=== PATIENT | male | born 1945 | race Caucasian/White ===

== ENCOUNTER 2021-08-21 13:06 | Outpatient (RCR) | payer OTHER ==
[2021-08-21 14:32] LABS: BASOPHILS % (AUTO) 0 % (0-10); EOSINOPHILS # (AUTO) 0.2 10^3/uL (0.0-0.3); EOSINOPHILS % (AUTO) 3 % (0-10); HEMATOCRIT 46 % (40-54); HEMOGLOBIN 14.7 g/dL (13.3-17.7); LYMPHOCYTES # (AUTO) 2.3 10^3/uL (1.0-4.0); LYMPHOCYTES % (AUTO) 35 % (12-44); MEAN CORPUSCULAR HEMOGLOBIN 28 pg (25-34); MEAN CORPUSCULAR HGB CONC 32 g/dL (32-36); MEAN CORPUSCULAR VOLUME 87 fL (80-99); MEAN PLATELET VOLUME 9.3 fL (9.0-12.2); MONOCYTES # (AUTO) 0.6 10^3/uL (0.0-1.0); MONOCYTES % (AUTO) 9 % (0-12); NEUTROPHILS # (AUTO) 3.5 10^3/uL (1.8-7.8); NEUTROPHILS % (AUTO) 53 % (42-75); PLATELET COUNT 162 10^3/uL (130-400); WHITE BLOOD COUNT 6.6 10^3/uL (4.3-11.0)
[2021-08-21 14:49] LABS: ALBUMIN 4.1 GM/DL (3.2-4.5); BILIRUBIN,TOTAL 0.6 MG/DL (0.1-1.0); CALCIUM 9.3 MG/DL (8.5-10.1); CREATININE SERUM 0.83 MG/DL (0.60-1.30); POTASSIUM 4.2 MMOL/L (3.6-5.0); TOTAL PROTEIN 7.5 GM/DL (6.4-8.2)
== END 2021-09-13 | disposition home or self-care (01) ==
LOC: ONC 13:06
PROVIDERS: ATTEND Internal Medicine Hematology & Oncology
DX: C64.9 Malignant neoplasm of unspecified kidney, except renal pelvis (principal)
CPT/HCPCS: 80053; 83615; 85025; 99213

== ENCOUNTER → 2021-09-09 | Outpatient (CLI) | payer OTHER ==
[~2021-09-09] MED LIST: BARIUM SUSPENSION 2.1% (VANILLA SILQ) 450 ML PO ONE; HOLD METFORMIN - RECEIVED CONTRAST 20 ML VIAL IV SCH; IOHEXOL 350 MG/ML 100 ML (OMNIPAQUE 350) VIAL IV ONE; NS 100 ML (IVPB) BAG IV ONE
[2021-09-09 09:54] LABS: ALBUMIN 4.1 GM/DL (3.2-4.5); BILIRUBIN,TOTAL 0.6 MG/DL (0.1-1.0); CALCIUM 9.1 MG/DL (8.5-10.1); CREATININE SERUM 0.92 MG/DL (0.60-1.30); POTASSIUM 4.3 MMOL/L (3.6-5.0); TOTAL PROTEIN 7.4 GM/DL (6.4-8.2)
--- NOTE | 2021-09-09 11:58 | Diagnostic Imaging Report ---
PROCEDURE: CT chest with contrast, CT abdomen with and without contrast. TECHNIQUE: Precontrast acquisitions were acquired through the abdomen. Multiple contiguous axial images were obtained through the chest and abdomen after administration of intravenous contrast. Auto Exposure Controls were utilized during the CT exam to meet ALARA standards for radiation dose reduction. INDICATION: Renal malignancy. I have no priors for comparison. FINDINGS: Postsurgical changes to the left lung present. Some scarring curvilinear in the left base. There is a densely calcified benign granuloma at the left apex posteriorly. No noncalcified or suspicious pulmonary nodule. No features suggestive of pneumonia or edema. There is no effusion or pneumothorax. There is a pathological right lower paratracheal mediastinal lymph node measuring 2.8 x 1.9 cm. Remaining mediastinal and hilar lymph node stations appeared normal. The chest wall unremarkable. No suspect bony lesion. Abdomen and pelvis: There is a left upper pole renal cyst showing no complexity. The right kidney surgically absent. The adrenal glands are present bilaterally and are normal. There is a tiny hyperenhancing focus at the dome of the right hepatic lobe posteromedially measuring 11 to 12 mm without a mass effect, somewhat ovoid in morphology and density is not significantly changed at the dynamic and delayed images. This is of uncertain etiology. Liver otherwise nonfocal. There is no bile duct dilatation. A few splenic granulomata noted incidentally. The pancreas normal. The gallbladder surgically absent. There is mild atherosclerotic fusiform unruptured infrarenal abdominal aortic aneurysmal dilatation 3.6 x 3.1 cm maximal. Common iliacs nonaneurysmal. There is no abdominal mesenteric or retroperitoneal lymphadenopathy. There is no ascites. There is no suspicious lytic or sclerotic bony lesion. There is lumbar spondylosis chronic. IMPRESSION: 1. Right paratracheal mediastinal lymph node and 1 cm hyperenhancing right hepatic dome nodules. These findings are indeterminate but given the history and the absence of priors, metastatic disease could not be confidently excluded. Either short-term followup or consideration for metabolic PET/CT suggested unless priors can confirm long-term stability. 2. Right nephrectomy with intact adrenals, benign cyst unobstructed. Left kidney otherwise normal. 3. Fusiform infrarenal abdominal aortic aneurysmal dilatation, annual sonographic followup to exclude progression of size recommended. 4. Postsurgical left lung with benign calcified pulmonary granulomata and no suspicious or acute pulmonary parenchymal pathology. Dictated by: Dictated on workstation # [id number]
== END ==
LOC: RAD 09:15
PROVIDERS: ATTEND Internal Medicine Hematology & Oncology
DX: C64.9 Malignant neoplasm of unspecified kidney, except renal pelvis (principal); N28.1 Cyst of kidney, acquired; I71.4 Abdominal aortic aneurysm, without rupture; K76.89 Other specified diseases of liver; J84.10 Pulmonary fibrosis, unspecified; Z90.5 Acquired absence of kidney
CPT/HCPCS: 36415; 71260; 74170; 80053

== ENCOUNTER → 2021-10-09 | Outpatient (CLI) | payer OTHER | LOC: CARD 09:00 | PROVIDERS: ATTEND Internal Medicine Cardiovascular Disease | DX: I51.7 Cardiomegaly (principal); I25.10 Atherosclerotic heart disease of native coronary artery without angina pectoris | CPT/HCPCS: 93306 ==

== ENCOUNTER → 2021-10-18 | Outpatient (CLI) | payer OTHER ==
[2021-10-18 11:25] LABS: BASOPHILS % (AUTO) 1 % (0-10); EOSINOPHILS # (AUTO) 0.2 10^3/uL (0.0-0.3); EOSINOPHILS % (AUTO) 4 % (0-10); HEMATOCRIT 43 % (40-54); HEMOGLOBIN 13.9 g/dL (13.3-17.7); LYMPHOCYTES # (AUTO) 1.7 10^3/uL (1.0-4.0); LYMPHOCYTES % (AUTO) 28 % (12-44); MEAN CORPUSCULAR HEMOGLOBIN 28 pg (25-34); MEAN CORPUSCULAR HGB CONC 32 g/dL (32-36); MEAN CORPUSCULAR VOLUME 87 fL (80-99); MEAN PLATELET VOLUME 9.3 fL (9.0-12.2); MONOCYTES # (AUTO) 0.5 10^3/uL (0.0-1.0); MONOCYTES % (AUTO) 8 % (0-12); NEUTROPHILS # (AUTO) 3.5 10^3/uL (1.8-7.8); NEUTROPHILS % (AUTO) 60 % (42-75); PLATELET COUNT 156 10^3/uL (130-400); WHITE BLOOD COUNT 5.9 10^3/uL (4.3-11.0)
[2021-10-18 11:39] LABS: PROTHROMBIN TIME PATIENT 13.6 SEC (12.2-14.7)
[2021-10-18 11:46] LABS: CALCIUM 9.1 MG/DL (8.5-10.1); CREATININE SERUM 0.98 MG/DL (0.60-1.30); POTASSIUM 5.1 MMOL/L (3.6-5.0)
== END ==
LOC: LAB 10:57
PROVIDERS: ATTEND Internal Medicine Cardiovascular Disease
DX: I25.10 Atherosclerotic heart disease of native coronary artery without angina pectoris (principal); C64.9 Malignant neoplasm of unspecified kidney, except renal pelvis; I71.4 Abdominal aortic aneurysm, without rupture; I10 Essential (primary) hypertension; I71.2 Thoracic aortic aneurysm, without rupture; E78.2 Mixed hyperlipidemia; J44.9 Chronic obstructive pulmonary disease, unspecified; E66.01 Morbid (severe) obesity due to excess calories
CPT/HCPCS: 36415; 80048; 85025; 85610

== ENCOUNTER 2021-10-24 09:00 | Day surgery (SDC) | payer OTHER ==
[~2021-10-24] VITALS: Ht 177.8 cm; Wt 131.1 kg
[2021-10-24 08:00] VITALS: BP 175/104
[2021-10-24 08:06] VITALS: BP 175/104
--- NOTE | 2021-10-24 08:51 | Pre-Op Note & Conscious Sedat ---
Pre-Operative Progress Note H&P Reviewed The H&P was reviewed, patient examined and no changes noted. Date H&P Reviewed: Oct 24, 2021 Time H&P Reviewed: 08:50 Pre-Op Diagnosis: Coronary artery disease with angina Conscious Sedation Pre-Proced ASA Score 2 For ASA 3 and 4: Consider anesthesia and medical clearance. Also, for patients with a history of failed moderate sedation consider anesthesia. Airway Lungs Heart ASA score ASA 1: a normal healthy patient ASA 2: a patient with a mild systemic disease (mid diabetes, controlled hypertension, obesity ASA 3: a patient with a severe systemic disease that limits activity (angina, COPD, prior Myocardial infarction) ASA 4: a patient with an incapacitating disease that is a constant threat to life (CHF, renal failure) ASA 5: a moribund patient not expected to survive 24 hrs. (ruptured aneurysm) ASA 6: a declared brain- patient whose organs are being harvested. For emergent operations, add the letter E after the classification Mallampati Classification Grade 3 Sedation Plan Analgesia, Amnesia, Plan communicated to team members, Discussed options with patient/fam, Discussed risks with patient/fam The patient is an appropriate candidate to undergo the planned procedure, sedation, and anesthesia. The patient immediately re-assessed prior to indication. TONJA SURESH JR, MD Oct 24, 2021 08:51
[~2021-10-24 09:00] MED LIST changes: +ACET-2650 PO; +ALBU2.5V4 INH; +ASPI-1238 PO; +ASPIRIN 81 MG CHEW (CHILDREN'S ASA) ONE; +ASPIRIN 81 MG CHEW (CHILDREN'S ASA) PO ONE; +ATOR40TA70 PO; -BARIUM SUSPENSION 2.1% (VANILLA SILQ) 450 ML PO ONE; +CALC-250 PO; +CATHETER FLUSH 10 ML SYR IV PRN; +CYAN-41 PO; +FLUT1BLS12 IH; +FLUT9.9S NS; +FURO-125 PO; +GABA300C PO; +HEParin (CATH LAB) 2,000 ML IV ONE; +HEParin 1000 UNIT/ML (10ML VIAL) FOR BOLUS ONE; -HOLD METFORMIN - RECEIVED CONTRAST 20 ML VIAL IV SCH; +HYDR-700 PO; -IOHEXOL 350 MG/ML 100 ML (OMNIPAQUE 350) VIAL IV ONE; +LIDOCAINE 1% INJ 20 ML VIAL ONE; +LISI40TA9 PO; +METO100T12 PO; +MIDAZOLAM 5 MG/5 ML (VERSED) VIAL ONE; +MULT-1136 PO; +NITRO DRIP 25000 MCG/D5W 250 ML IV ONE; -NS 100 ML (IVPB) BAG IV ONE; +NS IV 1000 ML 1,000 ML IV ONE; +NS IV 1000 ML 1,000 ML ONE; +RT-ALBUINH IH; +VERAPAMIL 5 MG/2 ML (CALAN) VIAL IV ONE; +fentaNYL INJ 100 MCG/2 ML AMP ONE
[2021-10-24] MEDS ORDERED: ISOS60TA63 PO (09:07)
[2021-10-24] MEDS ORDERED: NITR0.4T39 SL (09:07)
[2021-10-24] MEDS ORDERED: PATIENT MAY USE OWN MEDS, ALL PO SCH (11:15)
[2021-10-24] MEDS ORDERED: NS IV 1000 ML 1,000 ML IV SCH (11:15)
--- NOTE | 2021-10-24 11:21 | Cardiac Cath Report ---
CARDIAC CATHETERIZATION DATE OF PROCEDURE: 10/24/2021 INDICATION: Coronary artery disease with angina pectoris. HISTORY: The patient is a 76 year old male with a known history of coronary artery disease with previous stents. He has been having exertional dyspnea and as he previously abnormal stress test. He is on 2 antianginal medications but is still getting dyspnea on exertion which could be consistent with angina. As such, he is now referred for further evaluation with a cardiac catheterization. PROCEDURES PERFORMED: 1. Left heart catheterization with hemodynamic measurements. 2. Diagnostic [place] coronary angiography. PROCEDURE DESCRIPTION: After informed consent and in the fasting state, left heart catheterization was performed through the right radial artery utilizing a 6 [place]ian system by percutaneous approach. Standard 5 [place] Marion catheters were utilized for the diagnostic portion of the procedure. All catheters were exchanged over a guidewire. Following the procedure, a vascular band was applied to the radial artery access site and the sheath was removed with good hemostasis. RESULTS: HEMODYNAMICS: The aortic pressure was 120/69 mmHg. The left ventricular pressure was 147/0 mmHg with a left ventricular end-diastolic pressure of 15 mmHg. There was no significant pressure gradient upon pullback across aortic valve. CORONARY ANGIOGRAPHY: The coronary arteries were moderately calcified. Left main coronary artery: Free of significant disease. Left anterior descending coronary artery: There was a 50% stenosis in the mid segment right at the takeoff of a septal footwear production machine operator with DEVIKA-3 flow. Left circumflex coronary artery: There was a long 50% stenosis in the proximal segment just proximal to the takeoff of a very large first obtuse marginal branch which was free of significant disease. Right coronary artery: Dominant and somewhat ectatic. There was a stent in the mid segment at the crux of the vessel which was widely patent. There was a 50% stenosis just distal to the stent. IMPRESSION: 1. Mildly elevated left ventricular end-diastolic pressure. 2. Moderate calcific three-vessel coronary artery disease with a patent stent in the mid right coronary artery. 3. The patient is known to have normal left ventricular systolic function with an estimated ejection fraction of 55-60% by echocardiogram obtained on 10/09/2021. Certain portions of this document may have been dictated utilizing voice recognition technology. Inherent to this technology, typographical and grammatical errors may exist. As much as I am diligent to identify and correct these mistakes, some errors may remain in the document. TONJA SURESH JR, MD Oct 24, 2021 11:21
== END 2021-10-24 15:45 | disposition home or self-care (01) ==
LOC: CATH 09:00 → CSD 11:39 → CATH 15:45
PROVIDERS: ATTEND Internal Medicine Cardiovascular Disease
DX: I25.119 Atherosclerotic heart disease of native coronary artery with unspecified angina pectoris (principal); I10 Essential (primary) hypertension; E66.01 Morbid (severe) obesity due to excess calories; Z79.82 Long term (current) use of aspirin; Z87.891 Personal history of nicotine dependence; Z68.41 Body mass index [BMI] 40.0-44.9, adult; Z90.5 Acquired absence of kidney; Z85.528 Personal history of other malignant neoplasm of kidney; Z79.899 Other long term (current) drug therapy; Z82.49 Family history of ischemic heart disease and other diseases of the circulatory system; Z83.3 Family history of diabetes mellitus
CPT/HCPCS: 87081; 93458

== ENCOUNTER → 2022-03-21 | Outpatient (CLI) | payer OTHER ==
[~2022-03-21] MED LIST changes: -ASPIRIN 81 MG CHEW (CHILDREN'S ASA) ONE; -ASPIRIN 81 MG CHEW (CHILDREN'S ASA) PO ONE; -CATHETER FLUSH 10 ML SYR IV PRN; -HEParin (CATH LAB) 2,000 ML IV ONE; -HEParin 1000 UNIT/ML (10ML VIAL) FOR BOLUS ONE; +ISOS60TA63 PO; -LIDOCAINE 1% INJ 20 ML VIAL ONE; -MIDAZOLAM 5 MG/5 ML (VERSED) VIAL ONE; +NITR0.4T39 SL; -NITRO DRIP 25000 MCG/D5W 250 ML IV ONE; -NS IV 1000 ML 1,000 ML IV ONE; -NS IV 1000 ML 1,000 ML ONE; -VERAPAMIL 5 MG/2 ML (CALAN) VIAL IV ONE; -fentaNYL INJ 100 MCG/2 ML AMP ONE
[2022-03-21 10:15] LABS: CALCIUM 9.5 MG/DL (8.5-10.1); CREATININE SERUM 1.15 MG/DL (0.60-1.30); POTASSIUM 4.5 MMOL/L (3.6-5.0)
== END ==
LOC: LAB 09:29
PROVIDERS: ATTEND Internal Medicine Cardiovascular Disease
DX: C64.9 Malignant neoplasm of unspecified kidney, except renal pelvis (principal); I25.10 Atherosclerotic heart disease of native coronary artery without angina pectoris; I71.4 Abdominal aortic aneurysm, without rupture; I10 Essential (primary) hypertension; I71.2 Thoracic aortic aneurysm, without rupture; E78.2 Mixed hyperlipidemia; J44.9 Chronic obstructive pulmonary disease, unspecified; E66.01 Morbid (severe) obesity due to excess calories; Z71.89 Other specified counseling
CPT/HCPCS: 36415; 80048

== ENCOUNTER 2022-04-04 06:10 | Day surgery (SDC) | payer OTHER ==
[~2022-04-04] VITALS: Ht 175.3 cm; Wt 103.0 kg
[~2022-04-04 06:10] MED LIST changes: +BUDE10.7 IH
[2022-04-04] MEDS: TETRACAINE 0.5% OPHTH SOLN 4 ML BTL (SINGLE DOSE ONLY) OU PRN ×4 (06:30→06:47)
[2022-04-04] MEDS ORDERED: POVIDONE (BETADINE) OPHTH SOLN 5% 30 ML OP ONE (06:30)
[2022-04-04] MEDS ORDERED: MOXIFLOXACIN OPHTH SOLN 5 MG/ML 0.3 ML SYRINGE OP ONE (06:30)
[2022-04-04] MEDS ORDERED: TIMOLOL MALEATE 0.5% 5 ML (TIMOPTIC) BTL OU PRN (06:30)
[2022-04-04 06:34] VITALS: BP 122/84
[2022-04-04] MEDS: TROPICAMIDE 1% OPH SOLN (MYDRIACYL) 15 ML BTL OP SCH ×3 (06:37→06:47)
[2022-04-04] MEDS: PHENYLEPHRINE 10% OPHTH (NEO-SYN) 5 ML BTL OU SCH ×3 (06:37→06:47)
--- NOTE | 2022-04-04 06:54 | Ophthalmologist Pre-Op Note ---
Pre-Operative Progress Note H&P Reviewed The H&P was reviewed, patient examined and no changes noted. Date H&P Reviewed: Apr 04, 2022 Time H&P Reviewed: 06:54 Pre-Op Dx Cataract, Right Eye KENNETH JULES MD Apr 04, 2022 06:54
[2022-04-04] MEDS ORDERED: MIDAZOLAM 2 MG/2 ML (VERSED) VIAL ONE (07:22)
--- NOTE | 2022-04-04 07:38 | Ophthalmology Operative Report ---
Cataract removal/placement IOL PREOPERATIVE DIAGNOSIS: Cataract Right Eye POSTOPERATIVE DIAGNOSIS: Cataract Right Eye PROCEDURE: Cataract removal and placement of posterior chamber implant, right eye SURGEON: Luiz Jules ANESTHESIA: Topical with sedation COMPLICATIONS: None ESTIMATED BLOOD LOSS: Minimal DESCRIPTION OF PROCEDURE: After proper informed consent was obtained, the patient, a 76 male, was taken to the Operating Room and the right eye was anesthetized with tetracaine. The right eye was then prepped and draped in the usual manner. A wire lid speculum was placed. A paracentesis was made at the left hand position. Preservative free lidocaine was injected into the anterior chamber followed by viscoelastic. A clear corneal incision was made in the temporal position. A capsulorrhexis was preformed and the central nuclear and cortical material were removed. The posterior capsule was polished and Jimmy 20.0 AU00T0 IOL was placed into the capsular bag. The residual viscoelastic was aspirated and balanced saline solution was injected into the anterior chamber. Moxifloxacin was injected into the anterior chamber. The wound was checked and found to be water tight. The patient tolerated the procedure well without complications. LUIZ JULES MD Apr 04, 2022 07:38
[2022-04-04 07:45] VITALS: BP 140/82
[2022-04-04] MEDS ORDERED: acetaZOLAMIDE ER 500 MG CAP (DIAMOX SEQUELS) PO ONE (08:30)
--- NOTE | 2022-04-04 12:58 | Anesthesia-General Post-Op ---
MAC Patient Condition Mental Status/LOC: Same as Preop Cardiovascular: Satisfactory Nausea/Vomiting: Absent Respiratory: Satisfactory Pain: Controlled Complications: Absent Post Op Complications Complications None Follow Up Care/Instructions Patient Instructions None needed. Anesthesiology Discharge Order Discharge Order Patient is doing well, no complaints, stable vital signs, no apparent adverse anesthesia problems. No complications reported per nursing. FRANKO MORTON CRNA Apr 04, 2022 12:58
== END 2022-04-04 07:51 | disposition home or self-care (01) ==
LOC: SDC 06:10
PROVIDERS: ATTEND Specialist
DX: H25.9 Unspecified age-related cataract (principal); Z87.891 Personal history of nicotine dependence; Z95.5 Presence of coronary angioplasty implant and graft; Z79.82 Long term (current) use of aspirin

== ENCOUNTER → 2022-12-10 | Outpatient (CLI) | payer OTHER ==
[~2022-12-10] MED LIST changes: +ALBU8.5H6 IH; -RT-ALBUINH IH
--- NOTE | 2022-12-10 15:27 | Diagnostic Imaging Report ---
WRIST,BILAT,3 VIEWS OR MORE INDICATION: Bilateral wrist pain COMPARISON: None available. TECHNIQUE: 3 views of each wrist for total of 6 views. FINDINGS: Normal osseous mineralization both sides. There are no features of avascular necrosis of the lunate. No acute fracture. Joint spaces are well preserved. No cartilage calcifications. IMPRESSION: No osseous abnormality on either side. Dictated by: Dictated on workstation # [id number]
== END ==
LOC: ORTHO 08:53
PROVIDERS: ATTEND Orthopaedic Surgery
DX: M25.531 Pain in right wrist (principal); M25.532 Pain in left wrist
CPT/HCPCS: 99203

== ENCOUNTER 2022-12-15 05:31 | Outpatient (CLI) | payer OTHER ==
[~2022-12-15] VITALS: Ht 177.8 cm; Wt 128.0 kg
[2022-12-15] MEDS ORDERED: CALC-1135 PO (10:47)
[2022-12-15] MEDS ORDERED: HYDR25TA4 PO (10:47)
[2022-12-15] MEDS ORDERED: DICL100G13 TP (10:47)
== END 2022-12-15 10:55 | disposition home or self-care (01) ==
LOC: PREOP 05:31
PROVIDERS: ATTEND Orthopaedic Surgery
DX: Z01.818 Encounter for other preprocedural examination (principal)

== ENCOUNTER 2022-12-22 06:11 | Day surgery (SDC) | payer OTHER ==
[2022-12-22] VITALS (7 sets, daily range): BP systolic 119–135; BP diastolic 70–82
[~2022-12-22] VITALS: Ht 177 cm; Wt 128.0 kg
[~2022-12-22 06:11] MED LIST changes: +CALC-1135 PO; +DICL100G13 TP; +HYDR25TA4 PO
[2022-12-22] MEDS ORDERED: ceFAZolin INJECTION 2,000 MG in NS (IVPB) 50 ML IV ONE (06:30)
[2022-12-22] MEDS ORDERED: LACTATED RINGERS 1,000 ML IV PRN (06:30)
[2022-12-22] MEDS ORDERED: CATHETER FLUSH 10 ML SYR IVP PRN (07:00)
[2022-12-22] MEDS ORDERED: BUPIVACAINE 0.5% 30 ML (SENSORCAINE) VIAL ONE (07:11)
[2022-12-22] MEDS ORDERED: LIDOCAINE/EPI 1%-1:100,000 (XYLOCAINE) 20ML ONE (07:11)
[2022-12-22] MEDS ORDERED: LIDOCAINE 1% INJ 20 ML VIAL ONE (07:11)
--- NOTE | 2022-12-22 07:12 | Progress Note-Pre Operative ---
Pre-Operative Progress Note Date of Available H&P: Dec 10, 2022 Date H&P Reviewed: Dec 22, 2022 Time H&P Reviewed: 07:00 History & Physical: H&P Reviewed, Patient Examed, No changes noted Pre-Operative Diagnosis: Left Carpal Tunnel Syndrome NEGRITO KEE MD Dec 22, 2022 07:12
[2022-12-22] MEDS ORDERED: fentaNYL INJ 100 MCG/2 ML AMP ONE (07:17)
[2022-12-22] MEDS ORDERED: PROPOFOL INJECTION 50 ML IV ONE (07:57)
--- NOTE | 2022-12-22 08:04 | Operative Report - Ortho ---
Operative Report Surgeon (s)/News Wire Photo Operator (s) Surgeon NEGRITO KEE MD News Wire Photo Operator n/a Pre-Operative Diagnosis Left Carpal Tunnel Syndrome Post-Operative Diagnosis same Operative Report Date of Procedure: Dec 22, 2022 Name of Procedure Performed: Left Carpal Tunnel Release Description & Findings After obtaining informed consent and marking the patient in the preoperative holding area, the patient was administered IV antibiotics. The patient was t aken to the operating room and sedation was induced. Local anesthetic was placed. The left upper extremity was prepped and draped in the usual sterile fashion. Surgical timeout was taken. Incision was made just ulnar to the thenar crease. Blunt dissection was carried down to the longitudinal fibers of the palmar fascia; these were divided in line revealing the transverse carpal ligament. Beginning distally and working proximally, carpal tunnel release was performed. Nerve protector was placed and release was completed back to the level of the forearm fascia. Probe was inserted and release was palpably complete. Tourniquet was dropped and hemostasis was achieved. Wound was closed with 4-0 nylon. Wound was dressed with antibiotic ointment, xeroform, 4x4s, ida, ABD for soft splint, cast padding, and IVY wrap. Patient tolerated the procedure well and was stable to the recovery room. Anesthesia Type MAC plus Local Estimated Blood Loss minimal Specimen(s) collected/removed None NEGRITO KEE MD Dec 22, 2022 08:04
[2022-12-22] MEDS ORDERED: OXC5T PO (08:09)
--- NOTE | 2022-12-22 08:11 | Anesthesia-General Post-Op ---
MAC Patient Condition Mental Status/LOC: Same as Preop Cardiovascular: Satisfactory Nausea/Vomiting: Absent Respiratory: Satisfactory Pain: Controlled Complications: Absent Post Op Complications Complications None Follow Up Care/Instructions Patient Instructions None needed. Anesthesiology Discharge Order Discharge Order Patient is doing well, no complaints, stable vital signs, no apparent adverse anesthesia problems. No complications reported per nursing. YOVANY MORALES CRNA Dec 22, 2022 08:11
[2022-12-22] MEDS ORDERED: fentaNYL INJ 100 MCG/2 ML AMP IVP ONE (08:15)
[2022-12-22] MEDS ORDERED: ONDANSETRON 4 MG/2 ML (SDV) Z0FRAN IVP PRN (08:15)
== END 2022-12-22 09:10 | disposition home or self-care (01) ==
LOC: SDC 06:11
PROVIDERS: ATTEND Orthopaedic Surgery
DX: G56.02 Carpal tunnel syndrome, left upper limb (principal); G47.33 Obstructive sleep apnea (adult) (pediatric); J44.9 Chronic obstructive pulmonary disease, unspecified; Z87.891 Personal history of nicotine dependence; Z99.81 Dependence on supplemental oxygen
CPT/HCPCS: 87081

== ENCOUNTER → 2023-01-06 | Outpatient (CLI) | payer OTHER ==
[~2023-01-06] MED LIST changes: +OXC5T PO; +TRM50T PO
== END ==
LOC: ORTHO 09:31
PROVIDERS: ATTEND Orthopaedic Surgery
DX: Z47.89 Encounter for other orthopedic aftercare (principal)

== ENCOUNTER 2023-01-16 05:35 | Outpatient (CLI) | payer OTHER ==
[~2023-01-16] VITALS: Ht 177.8 cm; Wt 128.0 kg
[~2023-01-16 05:35] MED LIST changes: -TRM50T PO
== END 2023-01-16 13:12 | disposition home or self-care (01) ==
LOC: PREOP 05:35
PROVIDERS: ATTEND Orthopaedic Surgery
DX: Z01.818 Encounter for other preprocedural examination (principal)

== ENCOUNTER 2023-01-23 06:08 | Day surgery (SDC) | payer OTHER ==
[2023-01-23] VITALS (8 sets, daily range): BP systolic 126–135; BP diastolic 70–88
[~2023-01-23] VITALS: Ht 177.8 cm; Wt 128.0 kg
[2023-01-23] MEDS ORDERED: ceFAZolin INJECTION 2,000 MG in NS (IVPB) 50 ML IV ONE (06:15)
[2023-01-23] MEDS ORDERED: LACTATED RINGERS 1,000 ML IV PRN (06:15)
[2023-01-23] MEDS ORDERED: MIDAZOLAM 2 MG/2 ML (VERSED) VIAL ONE (06:57)
[2023-01-23] MEDS ORDERED: proPOfol 200 MG/20 ML (DIPRIVAN) VIAL IV ONE (06:57)
[2023-01-23] MEDS ORDERED: CATHETER FLUSH 10 ML SYR IVP PRN (07:00)
[2023-01-23] MEDS ORDERED: LIDOCAINE 1% INJ 20 ML VIAL ONE (07:07)
[2023-01-23] MEDS ORDERED: BUPIVACAINE 0.5% 30 ML (SENSORCAINE) VIAL ONE (07:08)
[2023-01-23] MEDS ORDERED: NEO/POLY/BAC (NEOSPORIN) OINT 15 GM TUBE ONE (07:10)
[2023-01-23] MEDS ORDERED: LIDOCAINE/EPI 1%-1:100,000 (XYLOCAINE) 20ML ONE (07:58)
--- NOTE | 2023-01-23 08:47 | Anesthesia-General Post-Op ---
MAC Patient Condition Mental Status/LOC: Same as Preop Cardiovascular: Satisfactory Nausea/Vomiting: Absent Respiratory: Satisfactory Pain: Controlled Complications: Absent Post Op Complications Complications None Follow Up Care/Instructions Patient Instructions None needed. Anesthesiology Discharge Order Discharge Order Patient is doing well, no complaints, stable vital signs, no apparent adverse anesthesia problems. No complications reported per nursing. NEGRITO BRICE CRNA January 23, 2023 08:47
--- NOTE | 2023-01-23 08:48 | Operative Report - Ortho ---
Operative Report Surgeon (s)/Spinal Surgeon (s) Surgeon NEGRITO KEE MD Spinal Surgeon n/a Pre-Operative Diagnosis Right Carpal Tunnel Syndrome Post-Operative Diagnosis same Operative Report Date of Procedure: January 23, 2023 Name of Procedure Performed: Right Carpal Tunnel Release Description & Findings After obtaining informed consent and marking the patient in the preoperative holding area, the patient was administered IV antibiotics. The patient was taken to the operating room and sedation was induced. Local anesthetic was placed. The right upper extremity was prepped and draped in the usual sterile fashion. Surgical timeout was taken. Incision was made just ulnar to the thenar crease. Blunt dissection was carried down to the longitudinal fibers of the palmar fascia; these were divided in line revealing the transverse carpal ligament. Beginning distally and working proximally, carpal tunnel release was performed. Nerve protector was placed and release was completed back to the level of the forearm fascia. Probe was inserted and release was palpably complete. Tourniquet was dropped and hemostasis was achieved. Wound was closed with 4-0 nylon. Wound was dressed with antibiotic ointment, xeroform, 4x4s, ida, ABD for soft splint, cast padding, and IVY wrap. Patient tolerated the procedure well and was stable to the recovery room. Anesthesia Type MAC plus Local Estimated Blood Loss minimal Specimen(s) collected/removed None NEGRITO KEE MD January 23, 2023 08:48
[2023-01-23] MEDS ORDERED: OXC5T PO (08:50)
[2023-01-23] MEDS ORDERED: MEPERIDINE (DEMEROL) INJ 50 MG/ML IVP ONE (09:00)
[2023-01-23] MEDS ORDERED: ONDANSETRON 4 MG/2 ML (SDV) Z0FRAN IVP PRN (09:00)
[2023-01-23] MEDS ORDERED: morphine INJ 10 MG/ML 1ML (SYR OR VIAL) IVP ONE (09:00)
[2023-01-23] MEDS ORDERED: TRM50T PO (09:58)
== END 2023-01-23 10:00 | disposition home or self-care (01) ==
LOC: SDC 06:08
PROVIDERS: ATTEND Orthopaedic Surgery
DX: G56.01 Carpal tunnel syndrome, right upper limb (principal); I10 Essential (primary) hypertension; E78.00 Pure hypercholesterolemia, unspecified; G47.33 Obstructive sleep apnea (adult) (pediatric); E66.01 Morbid (severe) obesity due to excess calories; Z68.41 Body mass index [BMI] 40.0-44.9, adult; Z87.891 Personal history of nicotine dependence; Z79.01 Long term (current) use of anticoagulants; Z95.5 Presence of coronary angioplasty implant and graft; Z79.899 Other long term (current) drug therapy; Z86.718 Personal history of other venous thrombosis and embolism; Z85.528 Personal history of other malignant neoplasm of kidney
CPT/HCPCS: 87081

== ENCOUNTER → 2023-02-05 | Outpatient (CLI) | payer OTHER ==
[~2023-02-05] MED LIST changes: +TRM50T PO
== END ==
LOC: ORTHO 08:28
PROVIDERS: ATTEND Orthopaedic Surgery
DX: Z47.89 Encounter for other orthopedic aftercare (principal)

== ENCOUNTER 2023-02-16 05:39 | Outpatient (CLI) | payer OTHER ==
[~2023-02-16] VITALS: Ht 175.3 cm; Wt 128.0 kg
== END 2023-02-16 13:17 | disposition home or self-care (01) ==
LOC: PREOP 05:39
PROVIDERS: ATTEND Podiatrist Foot & Ankle Surgery
DX: Z01.818 Encounter for other preprocedural examination (principal)

== ENCOUNTER 2023-02-23 06:04 | Day surgery (SDC) | payer OTHER ==
[2023-02-23] VITALS (11 sets, daily range): BP systolic 136–161; BP diastolic 77–88
[~2023-02-23] VITALS: Ht 175 cm; Wt 128.0 kg
[2023-02-23] MEDS ORDERED: ceFAZolin INJECTION 1,000 MG in NS (IVPB) 50 ML IV ONE (06:15)
[2023-02-23] MEDS ORDERED: LACTATED RINGERS 1,000 ML IV PRN (06:15)
[2023-02-23] MEDS ORDERED: LIDOCAINE 1% INJ 20 ML VIAL ONE (07:14)
[2023-02-23] MEDS ORDERED: BUPIVACAINE 0.5% 30 ML (SENSORCAINE) VIAL ONE (07:15)
[2023-02-23] MEDS ORDERED: fentaNYL INJ 100 MCG/2 ML AMP ONE (07:24)
--- NOTE | 2023-02-23 07:47 | Progress Note-Pre Operative ---
Pre-Operative Progress Note Date of Available H&P: Feb 23, 2023 Date H&P Reviewed: Feb 23, 2023 Time H&P Reviewed: 07:46 Pre-Operative Diagnosis: Hallux Valgus, Hallux Rigidus, right LUCIEN GOODE DPJanee Feb 23, 2023 07:47
[2023-02-23] MEDS ORDERED: LIDOCAINE PF 2% 5 ML (XYLOCAINE) VIAL ONE (08:47)
[2023-02-23] MEDS ORDERED: proPOfol 200 MG/20 ML (DIPRIVAN) VIAL IV ONE (08:47)
[2023-02-23] MEDS ORDERED: ONDANSETRON 4 MG/2 ML (SDV) Z0FRAN ONE (08:47)
[2023-02-23] MEDS ORDERED: BUPIVACAINE 0.5% 30 ML (SENSORCAINE) VIAL INJ ONE (08:51)
[2023-02-23] MEDS ORDERED: SEVOFLURANE (ULTANE) 15 ML INHAL SOLN ONE (09:17)
--- NOTE | 2023-02-23 09:19 | Progress Note-Post Operative ---
Post-Operative Progess Note Surgeon (s)/Vest Busheler (s) Surgeon LUCIEN GOODE DPM Vest Busheler: none Pre-Operative Diagnosis Hallux Valgus, Hallux Rigidus, right Post-Operative Diagnosis Same Procedure & Operative Findings Date of Procedure 02/23/23 Procedure Performed/Findings Herbie-Cecil Bunionectomy, right Anesthesia Type General Estimated Blood Loss Estimated blood loss (mL): Minimal Specimens/Packing Specimens Removed 1st metatarsal head, right LUCIEN GOODE DPM Feb 23, 2023 09:19
[2023-02-23] MEDS ORDERED: ACHD5005 PO (09:22)
[2023-02-23] MEDS ORDERED: CEPH500C PO (09:22)
[2023-02-23] MEDS ORDERED: HYDROcodone/APAP 5 MG/325 MG (LORTAB) TAB PO PRN (09:30)
[2023-02-23] MEDS ORDERED: LACTATED RINGERS 1,000 ML IV SCH (09:30)
[2023-02-23] MEDS ORDERED: morphine INJ 10 MG/ML 1ML (SYR OR VIAL) IVP ONE (09:30)
[2023-02-23] MEDS ORDERED: ONDANSETRON 4 MG/2 ML (SDV) Z0FRAN IVP PRN (09:30)
--- NOTE | 2023-02-23 11:49 | Physical Therapy Ortho Eval ---
PT Orthopedic Evaluation Type of Surgery Hallux Valgus, Hallux Rigidus, right Prior Level of Function Current Living Status: Spouse Locomotion (Upon Admit): Independent Established Durable Medical Eq: None Subjective Entry Into Home: Stairs Without Railing Steps Into Home: 1 Motor Control Motor Control: Motor Control WNL ROM ROM: WFL, except focal deficit Strength Strength: WFL Transfer SCALE: Activities may be completed with or without assistive devices. 9-Ajixapihzj-rxtrhjv completes the activity by him/herself with no assistance from a helper. 5-Set-up or Clean-up Assistance-helper sets up or cleans up; patient completes activity. [place] assists only prior to or following the activity. 4-Supervision or Touching Assistance-helper provides verbal cues and/or touching/steadying and/or contact guard assistance as patient completes activity. Assistance may be provided throughout the activity or intermittently. 3-Partial/Moderate Assistance-helper does LESS THAN HALF the effort. [place] lifts, holds or supports trunk or limbs, but provides less than half the effort. 2-Substantial/Maximal Assistance-helper does MORE THAN HALF the effort. [place] lifts or holds trunk or limbs and provides more than half the effort. 4-[place]-hgtkse does ALL the effort. Patient does none of the effort to complete the activity. Or, the assistance of 2 or more helpers is required for the patient to complete the activity. If activity was not attempted, code reason: 7-Patient Refused. 9-Not Applicable-not attempted and the patient did not perform the activity before the current illness, exacerbation or injury. 10-Not Attempted due to Environmental Limitations-(lack of equipment, weather restraints, etc.). 88-Not Attempted due to Medical Conditions or Safety Concerns. Transfers (B, C, W/C) (QC): 6 Gait Gait Assistive Device: FWW Right Lower Extremity: Right Weight Bearing Status RLE: Non Weight Bearing Left Lower Extremity: Left Weight Bearing Status LLE: Full Weight Bearing Other Weight Bearing Inst.: Heel contact for balance and transfers only, right foot Gait (QC): 4 Distance: 50' Stairs #of Steps: 1 Walking Assistive Device: Walker heel contact for step negotiation Treatment Rendered Treatment: Gait Train, Step Train Assessment/Goals Goal Time Frame: 1 Visit patient to utilize knee scooter and FWW at home Plan Treatment Plan: Discharge Time Time In: 1130 Time Out: 1140 Total Billed Treatment Time: 10 Billed Treatment Time 1 visit EVModC 10 min KANDI BAILEY PT Feb 23, 2023 11:49
--- NOTE | 2023-02-23 14:48 | OPERATIVE REPORT ---
DATE OF SERVICE: 02/23/2023 SURGEON: Xiomara Gutierrez DPM. PREOPERATIVE DIAGNOSES: 1. Hallux abductovalgus metatarsal primus varus, right. 2. Hallux rigidus, right. POSTOPERATIVE DIAGNOSES: 1. Hallux abductovalgus metatarsal primus varus, right. 2. Hallux rigidus, right. 3. Diagnosis of gout. PROCEDURE: Modified Herbie-Cecil bunionectomy, right. WOUND CLASS: Clean. ANESTHESIA: General. HEMOSTASIS: Pneumatic thigh tourniquet at 300 mmHg. INDICATIONS FOR PROCEDURE: This 77-year-old male presents with a painful bunion, right foot. Conservative therapy is met with unsatisfactory results and the patient is agreeable to surgical intervention after risks and complications were discussed at length. No guarantees were extended to the patient and he is willing to proceed. DESCRIPTION OF PROCEDURE: The patient was brought back to the operating table and placed in secure supine position. General anesthetic was then induced. Appropriate timeout was performed. Pneumatic thigh tourniquet was placed on the right lower extremity over several layers of padding. The right foot was then prepped and draped in normal sterile manner. Preprocedure anesthetic was utilized with local injection of 0.5% Marcaine injected in a Muniz block utilizing a total of 10 mL. At this time, the right foot was then prepped and draped in normal sterile manner. The right foot was then elevated allowed to exsanguinate after which the tourniquet was inflated to 300 mmHg. Attention was then directed to the dorsal aspect of the right foot where a 6 cm longitudinal linear incision was created overlying the first metatarsophalangeal joint area. The incision was deepened in the same plane with great care to identify and retract all vital neurovascular structures. Only necessary blood vessels were cauterized as encountered. The incision was deepened down to the capsule where a longitudinal capsulotomy was performed. This exposed the medial eminence of the first metatarsal head, which was resected utilizing a power sagittal saw. Next, blunt dissection was carried out into the first intermetatarsal space where a lateral release was performed. The lateral capsulorrhaphy was performed as well as the release of the conjoined tendon of the adductor hallucis. The fibular sesamoidal ligament was also released after which the hallux was then forcibly adducted. Attention was redirected to the medial aspect of the first metatarsal head where a Chevron type osteotomy was performed from medial to lateral, allowing the capital fragment to translocate laterally and was fixated in its % in its new position utilizing a 0.062 K-wire. This K-wire was driven from dorsal proximal to plantar distal with great care not to penetrate the articular cartilage. 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 This was sent to pathology for further evaluation and workup and was confirmed to be crystals consistent with gout. All of the loose tophaceous gout was removed; however, it was impossible to remove all of the fragments. The joint was flushed with copious amounts of normal saline. The head was further contoured and smoothed with a power bur. Attention was then directed to the lateral deviating right hallux where an Cecil type procedure was performed. Subperiosteal dissection was carried out to the diaphysis of the proximal phalanx, after which a wedge of bone was resected. The base of the wedge of bone was medial and the lateral cortices held intact. This was performed with a power sagittal saw. A two pilot manager holes were created to the dorsal medial aspect of the osteotomy after which a 28-gauge monofilament wire was passed through these pilot manager holes securing the osteotomy in a closed position. Excellent bony apposition and fixation was appreciated at this time. Excellent range of motion was appreciated at the right first metatarsophalangeal joint without crepitation. Closure was then performed in layers. Deep closure was performed with 3-0 Vicryl, superficial with 4-0 Vicryl, skin closed with 4-0 Prolene in a horizontal mattress type stitch. The patient tolerated the procedure well. Postoperative injection consisted of 1560 mL of additional 0.5% Marcaine in a [place]iz block followed by 10 mg of Decadron into the first metatarsophalangeal joint area. Postoperative dressing consisted of Betadine-soaked Adaptic, sterile 4 x 4's, sterile Kerlix, all secured with a Coban wrap. The patient tolerated the anesthesia and procedure well and was transported from the operating room to the recovery room with vital signs stable and vascular status intact to all digits of the right foot. He is to remain nonweightbearing on the right lower extremity with crutches or knee scooter. He is to follow up in my office in 10 days of time. He was given a prescription for Keflex as well as Vicodin. Job ID: [id number] DocumentID: [id number] Dictated Date: 02/23/2023 09:32:24 Generator Mechanic Date: 02/23/2023 14:46:00 Dictated By: TIARA KAUFMAN
--- NOTE | 2023-02-23 18:05 | Diagnostic Imaging Report ---
EXAMINATION: Right foot radiographs, 2 views. COMPARISON: None. HISTORY: 77-year-old male, right foot surgery. History of right foot pain. FINDINGS: There is metallic fixation wire at level of osteotomy of the first proximal phalanx. There is also an osteotomy of the first metatarsal with fixation pin in place. There is uncovering of the lateral sesamoid of the first digit. 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 There is adjacent soft tissue swelling. There are also areas of lucency in the soft tissues which may reflect soft tissue gas and could relate to recent procedural state of the patient. Recommend correlation. There is degenerative type calcaneal enthesopathy. There is no cortical or aggressive bone destruction. IMPRESSION: 1. Postoperative changes of the first digit without apparent complication. 2. Mild osteoarthritis of the first metatarsophalangeal joint. 3. Degenerative type calcaneal enthesopathy. Dictated by: Dictated on workstation # [id number]
--- NOTE | 2023-03-13 07:49 | Anesthesia-General Post-Op ---
General Significant Intra-Op Events Notes late entry from 02/23/23 at 1000 Patient Condition Mental Status/LOC: Same as Preop Cardiovascular: Satisfactory Nausea/Vomiting: Absent Respiratory: Satisfactory Pain: Controlled Complications: Absent Post Op Complications Complications None Follow Up Care/Instructions Patient Instructions None needed. Anesthesia/Patient Condition Patient Condition Patient is doing well, no complaints, stable vital signs, no apparent adverse anesthesia problems. No complications reported per nursing. YOVANY MORALES CRNA Mar 13, 2023 07:49
== END 2023-02-23 11:50 | disposition home or self-care (01) ==
LOC: SDC 06:04
PROVIDERS: ATTEND Podiatrist Foot & Ankle Surgery
DX: M20.11 Hallux valgus (acquired), right foot (principal); M20.31 Hallux varus (acquired), right foot; M20.21 Hallux rigidus, right foot; M10.9 Gout, unspecified; G47.33 Obstructive sleep apnea (adult) (pediatric); I10 Essential (primary) hypertension; E66.01 Morbid (severe) obesity due to excess calories; Z99.81 Dependence on supplemental oxygen; Z87.891 Personal history of nicotine dependence; Z68.41 Body mass index [BMI] 40.0-44.9, adult; Z79.899 Other long term (current) drug therapy; Z28.310 Unvaccinated for COVID-19
CPT/HCPCS: 73620; 87081; 88161; 88305; 88311

== ENCOUNTER → 2023-03-05 | Outpatient (CLI) | payer OTHER ==
[~2023-03-05] MED LIST changes: +ACHD5005 PO; +CEPH500C PO
== END ==
LOC: ORTHO 08:30
PROVIDERS: ATTEND Orthopaedic Surgery
DX: Z47.89 Encounter for other orthopedic aftercare (principal)